=== PATIENT | male | born 1980 | race Caucasian/White ===

== ENCOUNTER 2021-05-26 14:36 | Emergency (ER) | payer OTHER, SELFPAY ==
[2021-05-26 14:47] VITALS: BP 123/82; PULSE 71; RESP 16; TEMP 36.7; O2SAT 100
--- NOTE | 2021-05-26 14:49 | ED.EYEPROB ---
HPI - Eye Problem General Chief complaint: Eye Problems Stated complaint: FB L EYE Source: patient Mode of arrival: ambulatory Limitations: no limitations History of Present Illness HPI Narrative: Patient is a 40-year-old male who presents with possible foreign body in left eye. He reports he was working under the [employer] on an engine when he felt possible foreign body. Redness and tearing noted. Denies visual difficulties at this time. Denies using [id number] medications prior to arrival. Denies flushing eye. Patient has no significant medical history. chief complaint: eye pain and foreign body Related Data Allergies Allergy/AdvReac Type Severity Reaction Status Date / Time No Known Allergies Allergy Verified 05/26/21 14:45 Review of Systems Review of Systems: CONSTITUTIONAL: Denies fever, chills, or sweats. EYES: Denies visual changes, reports redness, irritation and foreign body sensation ENT: Denies rhinorrhea, congestion, sore throat, or otalgia. CARDIOVASCULAR: Denies chest pain, palpitations, or edema. RESPIRATORY: Denies cough or dyspnea. GASTROINTESTINAL: Denies abdominal pain, nausea, vomiting, or diarrhea. GENITOURINARY: Denies dysuria or hematuria. SKIN: Denies rash or itching. MUSCULOSKELETAL: Denies back pain, joint pain, or myalgia. NEUROLOGIC: Denies headache, numbness, dizziness, or weakness. PSYCHIATRIC: Denies anxiety or depression. PMFSH Past Medical History Medical History Kidney stone Psoriasis Surgical History Surgical History No significant past surgical history Social History Social History (Updated 05/26/21 @ 14:52 by MATI Turcios) Smoking status: Never smoker Alcohol intake: current Alcohol use details: Occasional Substance use: never Living arrangements: with family Comments At the time of signature, I have reviewed and agree with nursing past medical, surgical, social, and family history unless otherwise noted. Please see nursing chart for further information. There is no relevant family history pertinent to the presenting complaint. Exam Narrative: GENERAL: Well-appearing, well-nourished, and in no acute distress. HEAD: Normocephalic, atraumatic. EYES: Sclera injected, clear drainage noted, photophobia ENT: Mucous membranes pink and moist. CHEST: No respiratory distress. HEART: Regular rate and rhythm. EXTREMITIES: Normal range of motion. SKIN: Warm, dry, no rash. NEURO: No focal deficits. Alert and oriented x3. Gait steady. PSYCH: Normal affect. No signs of depression or anxiety. Course Vital Signs Vital signs: Vital Signs Temperature 36.7 C 05/26/21 14:47 Pulse Rate 71 05/26/21 14:47 Respiratory Rate 16 05/26/21 14:47 Blood Pressure 123/82 05/26/21 14:47 Pulse Oximetry 100 05/26/21 14:47 Temperature 36.7 C 05/26/21 14:47 Pulse Rate 71 05/26/21 14:47 Respiratory Rate 16 05/26/21 14:47 Blood Pressure 123/82 05/26/21 14:47 Pulse Oximetry 100 05/26/21 14:47 Reviewed Procedures Other Procedure Procedure 1: Other Procedure: Left eye was anesthetized with 1 drop of tetracaine and anesthesia was achieved. The eye was flushed with eyewash. Lid was inverted and examined. Moistened Q-tip was used to sweep underneath the upper eyelid, lower eyelid inspected with 1 foreign bodies resulting. Cornea was dyed with fluorescein and no abrasions or ulcerations were noted. Patient tolerated procedure well. MDM - Eye Problem MDM Narrative Medical decision making narrative: Patient has small foreign body in left eye. No abrasions noted. Discussed with patient using antibiotic eye ointment. Patient to follow-up with ophthalmology if symptoms persist. Differential Diagnosis Differential diagnosis: Likely corneal abrasion, conjunctivitis, acute iritis, subconjunctival hemorrhage and corneal ulce
== END 2021-05-26 15:05 | disposition home or self-care (01) ==
PROVIDERS: Emergency Provider Nurse Practitioner; PCP Family Medicine Sports Medicine
DX: T15.12XA Foreign body in conjunctival sac, left eye, initial encounter (principal); X58.XXXA Exposure to other specified factors, initial encounter; L40.9 Psoriasis, unspecified
CPT/HCPCS: 65205; 99203; A9270; G0463